=== PATIENT | female | born 1995 | race Two or more races ===

== ENCOUNTER 2016-07-19 14:59 | Emergency (ER) | payer SELFPAY ==
[~2016-07-19] VITALS: Ht 167.6 cm; Wt 74.0 kg
[2016-07-19 15:15] VITALS: Ht 167.6 cm; Wt 74.0 kg
[2016-07-19 15:48] LABS: URINE BLOOD (Dip) POC 3+ (NEGATIVE)
[2016-07-19 16:21] LABS: BASOPHILS % 0.5 % (0.0-2.0); EOSINOPHILS # 0.2 10^3/ul (0.0-0.5); EOSINOPHILS % 1.8 % (0.0-7.0); HEMATOCRIT 36.8 % (37.0-47.0); HEMOGLOBIN 12.6 g/dl (12.0-16.0); LYMPHOCYTES # 1.8 10^3/ul (0.8-2.9); LYMPHOCYTES % 21.1 % (15.0-51.0); MEAN CORPUSCULAR HEMOGLOBIN 31.2 pg (29.0-33.0); MEAN CORPUSCULAR HGB CONC 34.2 g/dl (32.0-37.0); MEAN CORPUSCULAR VOLUME 91.3 fl (82.0-101.0); MEAN PLATELET VOLUME 8.4 fl (7.4-10.4); MONOCYTE # 0.4 10^3/ul (0.3-0.9); MONOCYTES % 4.7 % (0.0-11.0); NEUTROPHIL # 6.2 10^3/ul (1.6-7.5); NEUTROPHILS % 71.9 % (39.0-77.0); PLATELET COUNT 262 10^3/UL (140-440); RED BLOOD COUNT 4.03 10^6/ul (4.20-5.40); RED CELL DISTRIBUTION WIDTH 12.7 % (11.5-14.5); UNCORRECTED WBC 8.6 10^3/ul (4.8-10.8); WHITE BLOOD COUNT 8.6 10^3/ul (4.8-10.8)
[2016-07-19 16:25] LABS: ADD UMIC YES; URINE BILIRUBIN (Dip) NEGATIVE (NEGATIVE); URINE BLOOD (Dip) 3+ (NEGATIVE); URINE COLOR LT. YELLOW (YELLOW); URINE GLUCOSE (Dip) NEGATIVE (NEGATIVE); URINE KETONES (Dip) NEGATIVE (NEGATIVE); URINE LEUKOCYTE ESTERASE (Dip) TRACE (NEGATIVE); URINE NITRITE (Dip) NEGATIVE (NEGATIVE); URINE TOTAL PROTEIN (Dip) NEGATIVE (NEGATIVE); URINE UROBILINOGEN (Dip) 0.2 E.U./dL (0.1-1.0)
[2016-07-19 16:27] LABS: CONDITION 1
[2016-07-19 16:51] LABS: BACTERIA,URINE FEW; SQUAMOUS EPITHELIAL CELL,UR FEW
--- NOTE | 2016-07-19 17:03 | RADRPT ---
PROCEDURE: US Pelvis/OB. CLINICAL INDICATION: vaginal bleeding TECHNIQUE: Multiple sonographic images of the pelvis were obtained utilizing a transabdominal and endovaginal technique. The images were reviewed on a PACS workstation. COMPARISON: None. FINDINGS: There is a small irregular appearing cystic structure within the lower cervix region measuring 0.6 c m which would correspond to a calculated gestational age of 5 weeks and 2 days. No pole or yol k sac is yet visualized. The right ovary measures 3.8 x 2.3 x 2.8 cm. There is a 1.7 cm hemorrhagic cyst in the right ovary. The left ovary measures 3.3 x 2.2 x 2.4 cm. No significant free fluid is present within the pelvis. RPTAT: AA IMPRESSION: Small irregular appearing cystic structure in the lower cervical region, could represent an in progress. Close followup ultrasound and hCG is recommended. .Stef Escobar MD, MD Date Time Electronically viewed and signed by .Stef Escobar MD, on 07/19/2016 17:03 .S/
--- NOTE | 2016-07-19 17:15 | ERD ---
ER Documentation Chief Complaint Date/Time DATE: 07/19/16 TIME: 17:11 Chief Complaint pt bib self with c/o vag bleeding approx 5 wks HPI Patient is a 21-year-old female who presents with vaginal bleeding. She is . She states that she is approximately 5 weeks . She has her first OB appointment coming up within the next few days. She states the vaginal bleeding began Thursday and it was very heavy at first and the large clot-like structure came out and now she still has vaginal bleeding but it is much rn palliative care and there is no clots at this time. She has no pain. No nausea or vomiting. No dysuria, hematuria or increased urinary frequency. Denies any fevers or chills. ROS All systems reviewed and are negative except as per history of present illness. Allergies Allergies: Coded Allergies: No Known Allergy (Unverified , 07/19/16) PMhx/Soc Medical and Surgical Hx: pt denies Medical Hx, pt denies Surgical Hx Hx Miscellaneous Medical Probl: Yes ( A0) Hx Alcohol Use: Yes (BEER OCCASSIONALLY) Hx Substance Use: No Hx Tobacco Use: Yes (4 CIG/DAY) Smoking Status: Light tobacco smoker FmHx Family History: No diabetes Physical Exam Vitals Vital Signs Date Time Temp Pulse Resp B/P Pulse Ox O2 Delivery O2 Flow Rate FiO2 07/19/16 15:15 98.3 76 18 122/64 98 Physical Exam General: well developed, well nourished, alert, nontoxic, no distress Head: normocephalic, atraumatic Neck: Supple, nontender, no lymphadenopathy, no midline tenderness Respiratory: Clear to auscaultation bilaterally, speaks in full sentences, no use of accesory muscles or labored breathing, no rales, ronchi, or wheezing Cardiovascular: RRR, No murmurs GI: soft, non tender, non distended, negative murphys sign, negative mcburneys point tenderness, no cva tenderness bilaterally, no rebound or guarding Result Diagram: 07/19/16 1558 Results 24 hrs Laboratory Tests Test 07/19/16 15:49 07/19/16 15:51 07/19/16 15:58 Bedside Urine Blood 3+ Bedside Urine Glucose (UA) Negative Bedside Urine Ketones (LAB) Negative Bedside Urine Leukocyte Esterase (L Trace Bedside Urine Nitrite (LAB) Negative Bedside Urine Protein (LAB) Negative Bedside Urine pH (LAB) 7.0 Urine Bacteria FEW Urine Bilirubin NEGATIVE Urine Clarity CLEAR Urine Color LT. YELLOW Urine Glucose NEGATIVE% Urine Hemoglobin 3+ Urine Ketones NEGATIVE Urine Leukocyte Esterase TRACE Urine Microscopic RBC 5-10/HPF Urine Microscopic WBC 2-5/HPF Urine Nitrite NEGATIVE Urine Specific [place] <=1.005 Urine Squamous Epithelial Cells FEW Urine Total Protein NEGATIVE Urine Urobilinogen 0.2 E.U./dL Urine pH 7.0 Basophils # 0.010^3/ul Basophils % 0.5% Beta HCG, Quantitative 2323.7mIU/ml Eosinophils # 0.210^3/ul Eosinophils % 1.8% Hematocrit 36.8% Hemoglobin 12.6g/dl Lymphocytes # 1.810^3/ul Lymphocytes % 21.1% Mean Corpuscular Hemoglobin 31.2pg Mean Corpuscular Hemoglobin Concent 34.2g/dl Mean Corpuscular Volume 91.3fl Mean Platelet Volume 8.4fl Monocytes # 0.410^3/ul Monocytes % 4.7% Neutrophils # 6.210^3/ul Neutrophils % 71.9% Nucleated Red Blood Cells # 0.010^3/ul Nucleated Red Blood Cells % 0.0/100WBC Platelet Count 11637^3/UL Red Blood Count 4.0310^6/ul Red Cell Distribution Width 12.7% White Blood Count 8.610^3/ul Procedures/MDM 21-year-old female complaining of vaginal bleeding. Vital signs are within normal limits. Patient has no pain and is well-appearing in no distress. She is hemodynamically stable. Ultrasound showed Small irregular appearing cystic structure in the lower cervical region, could represent an in progress.Close followup ultrasound and hCG is recommended. No evidence of ectopic . Patient was given copies of her labs that she can follow with primary care and OB. She understands she needs to follow-up within the next couple days or return here and that within the next couple days for follow-up examination. I reviewed all of my physical exam and lab findings and ultrasound with my supervising physician Dr. Davenport who explained to me that the patient is suitable for outpatient management and the patient was discharged. Recommended this patient follow up with her primary care doctor within 48 hours or return to the emergency room for any worsening of symptoms. However this time I do believe there is suitable for outpatient management. I answered all their questions and they agreed with the plan and were discharged home. Departure Diagnosis: Primary Impression: Incomplete Condition: Stable Patient Instructions: Miscarriage (Incomplete) Additional Instructions: Call your primary care doctor TOMORROW for an appointment during the next 1-2 days.See the doctor sooner or return here if your condition worsens before your appointment time. FLACA MURO PA-C Jul 19, 2016 17:15
[2016-07-19 17:20] VITALS: BP 120/62; PULSE 78; RESP 18; TEMP 98.3
== END 2016-07-19 17:20 | disposition home or self-care (01) ==
LOC: FTE 14:59
DX: O03.4 Incomplete spontaneous abortion without complication (principal); O99.331 Smoking (tobacco) complicating pregnancy, first trimester; F17.210 Nicotine dependence, cigarettes, uncomplicated
CPT/HCPCS: 36415; 76801; 76817; 81001; 81003; 84702; 85025; 86900; 86901